=== PATIENT | male | born 1985 | race Caucasian/White ===

== ENCOUNTER 2020-05-08 09:14 | Emergency (ER) | payer OTHER, SELFPAY ==
[2020-05-08 09:27] VITALS: BP 152/91; PULSE 80; RESP 16; TEMP 36.4; O2SAT 99; BMI 32.9
--- NOTE | 2020-05-08 09:30 | PC.NURSE ---
ambulating to bathroom w steady gait.
--- NOTE | 2020-05-08 09:31 | ED_ITS ---
HPI - General Adult General Chief complaint: Overdose Stated complaint: overdose Time Seen by Provider: 05/08/20 09:27 Source: patient Mode of arrival: ambulatory Limitations: no limitations History of Present Illness HPI narrative: Patient comes to emergency room, brought by police department. 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 Patient pulled over to the side of the road and took a nap in his car. Police department found him, the patient did not receive Narcan, patient woke up. Patient states that he was very somnolent and when he wakes up he is a bit confused but needed a few minutes to wake up. Patient states that the community relations police lieutenant immediately asked him to come to the emergency room or be arrested. Patient states that sometimes he uses heroin. Related Data Allergies Allergy/AdvReac Type Severity Reaction Status Date / Time No Known Allergies Allergy Verified 05/08/20 09:31 Review of Systems Review of Systems: Constitutional : No Weight loss, No Fever, No Chills, No Night Sweats, No Fatigue, No Malaise ENT/Mouth : No Hearing loss, No Ear Pain, No Nasal Congestion, No Sinus Pain, No Hoarseness, No sore throat, No Rhinorrhea, No Swallowing Difficulty Eyes: No Eye Pain, No Swelling, No Redness, No Foreign Body, No Discharge, No Vision Changes Cardiovascular : No Chest Pain, No SOB, No Dyspnea on Exertion, No Orthopnea, No Edema, No Palpitations Respiratory : No Cough, No Sputum, No Wheezing, No Smoke Exposure, No Dyspnea Gastrointestinal : No Nausea, No Vomiting, No Diarrhea, No Constipation, No abdominal Pain, No Hematochezia, No Melena Genitourinary : no irregular bleeding, No Dysuria, No Urinary Frequency, No Hematuria, No Urinary Incontinence, No Urgency, No Flank Pain, No Urinary Flow Changes, No Hesitancy Musculoskeletal : No joint pain, No Myalgias, No Joint Swelling Skin : No Skin Lesions, No rash Neuro : No Weakness, No Numbness, No Paresthesias, No Loss of Consciousness, No Dizziness, No Headache Psych : No Anxiety/Panic, No Depression, No SI/HI/AH/VH, No Social Issues, Heme/Lymph: No Bruising, No Bleeding,No Lymphadenopathy Endocrine : No Polyuria, No Polydipsia, No Temperature Intolerance [facility] Past Medical History Medical History (Updated 05/08/20 @ 09:43 by Nely Walton MD) Substance abuse Physical Exam Vital Signs: Vital Signs: Last Vital Signs Temp 97.5 F 05/08/20 09:27 Pulse 80 05/08/20 09:27 Resp 16 05/08/20 09:27 BP 152/91 H 05/08/20 09:27 Pulse Ox 99 05/08/20 09:27 Body Mass Index 32.9 Appearance: Alert. Oriented X3. No acute distress. Eyes: Pupils equal, round and reactive to light. ENT: Pharynx normal. Neck: Normal inspection. Neck supple. No lymph nodes noted. No crepitus CVS: Normal heart rate and rhythm. Pulses normal. Normal S1 and S2 Respiratory: No respiratory distress. Breath sounds normal. No Wheezing. No rales Abdomen: Soft and nontender. No rigidity. No distention. good BS x4 Skin: Skin warm and dry. Normal skin color. Normal skin turgor. Extremities: No lower extremity edema. No lower extremity edema. No Lacerations. No Rash Neuro: Oriented X 3. No motor deficit. No sensory deficit. Moving all extermities. No slurred speech. Course Course Course Narrative: Patient remains awake and alert, did not use any Narcan, patient calm, cooperative, alert and oriented x4. Patient states that his mother will pick him up, patient's oxygen saturation 99% on room air, respiratory rate 16. Patient not somnolent, has steady gait unassisted. Discharge Plan Discharge Clinical Impression: Normal physical exam Patient Disposition: Home, Self-Care Additional Instructions: Please follow-up with your primary care physician tomorrow. If you have any worsening or new symptoms, please return to the emergency room or call 911
== END 2020-05-08 10:08 | disposition home or self-care (01) ==
LOC: HO.ED 10:05
PROVIDERS: Emergency Provider Emergency Medicine
DX: Z03.89 Encounter for observation for other suspected diseases and conditions ruled out (principal)
CPT/HCPCS: 99283